=== PATIENT | female | born 1960 | race American Indian/Alaskan Native ===

== ENCOUNTER 2016-12-16 08:40 | Outpatient (CLI) | payer MEDICARE ==
--- NOTE | 2016-12-16 10:51 | Mammography Report ---
Bilateral mammogram: No previous studies available. CAD study utilized. Findings Predominance adipose tissue bilaterally. No mass or microcalcification. Benign axillary nodes. Impression: Benign findings. Annual followup recommended. BI-RADS CATEGORY: 2 = Benign ACR BI-RADS MAMMOGRAPHIC CODES: 0 = Needs additional imaging evaluation; 1 = Negative; 2 = Benign; 3 = Probably benign; 4 = Suspicious; 5 = Malignant; 6 = Known biopsy-proven malignancy COMMENT: 1. Dense breast tissue, i.e., adenosis, fibrocystic changes, etc., may obscure an underlying neoplasm. 2. Approximately 10% of cancers are not detected with mammography. 3. A negative mammography report should not delay biopsy if a clinically suspicious mass is present. COMMENT: Patient follow-up letters are generated in [employer]. There
== END 2016-12-16 08:41 | disposition home or self-care (01) ==
LOC: MAMMO 08:40
PROVIDERS: ATTEND Internal Medicine
DX: Z12.31 Encounter for screening mammogram for malignant neoplasm of breast (principal)
CPT/HCPCS: 77067; G0202

== ENCOUNTER 2018-09-30 09:59 | Outpatient (CLI) | payer MEDICARE ==
--- NOTE | 2018-09-30 11:17 | XRay Report ---
ROUTINE CHEST, TWO VIEWS: HISTORY: Chest pain, persistent cough. The trachea, heart, mediastinal contour, lung burnette and bony thorax are unremarkable. IMPRESSION: Unremarkable chest x-ray.
--- NOTE | 2018-09-30 11:18 | XRay Report ---
CERVICAL SPINE, 3 views: History: Neck pain. Findings: Normal bone mineralization. Normal height and alignment of the cervical vertebral bodies. Moderate to severe degenerative disc disease is identified at C2-3 and C3-4. Disc space narrowing and near bridging anterior osteophytes are identified at these levels. Mild anterior spurring is noted at the remaining levels. There is no evidence for fracture, subluxation or bone lesion. The dens is intact. Impression: Moderate cervical spondylosis as described.
--- NOTE | 2018-09-30 15:27 | Mammography Report ---
BILATERAL DIGITAL SCREENING MAMMOGRAM with CAD: 09/30/18 09:59:00 CLINICAL: Routine screening. COMPARISON:12/16/16 FINDINGS: The breasts are almost entirely fatty. No mass, architectural distortion or suspicious calcifications. IMPRESSION: No mammographic evidence of malignancy. BI-RADS CATEGORY: 1 - - Negative RECOMMENDATION: Routine mammographic screening in one year. COMMENT: Patient follow-up letters are generated by our [employer] application.
== END 2018-09-30 10:00 | disposition home or self-care (01) ==
LOC: MAMMO 09:59
PROVIDERS: ATTEND Internal Medicine
DX: Z12.31 Encounter for screening mammogram for malignant neoplasm of breast (principal); M47.812 Spondylosis without myelopathy or radiculopathy, cervical region; R07.9 Chest pain, unspecified
CPT/HCPCS: 71046; 72040; 77067

== ENCOUNTER 2018-12-22 17:47 | Emergency (ER) | payer MEDICARE ==
[2018-12-22] MEDS ORDERED: PEPCID IV ONE (18:12)
[2018-12-22] MEDS ORDERED: SOLU-Medrol IV ONE (18:12)
--- NOTE | 2018-12-22 18:12 | Event Note ---
ED Screening Note Date of service: 12/22/18 Time: 18:10 ED Screening Note: 58 y o female presents to ed cc of hives and blistering to upper and lower back This initial assessment/diagnostic orders/clinical plan/treatment(s) is/are subject to change based on patients health status, clinical progression and re- assessment by fellow clinical providers in the ED. Further treatment and workup at subsequent clinical providers discretion. Patient/guardian urged not to elope from the ED as their condition may be serious if not clinically assessed and managed. Initial orders include: IV meds pepcid and solumedrol iv fluids
[2018-12-22] MEDS ORDERED: NACL 0.9% 1000 ML 1,000 ML IV ONE (18:17)
[2018-12-22] MEDS ORDERED: THERMAZENE 50 GRAM TP ONE (18:21)
[2018-12-22 18:45] LABS: Basophils % (Auto) 0.3 % (0.0-1.8); Eosinophils # (Auto) 0.1 K/mm3 (0.0-0.4); Hematocrit 39.8 % (30.3-42.9); Hemoglobin 13.5 gm/dl (10.1-14.3); Lymphocytes # (Auto) 1.5 K/mm3 (1.2-5.4); Lymphocytes % (Auto) 14.3 % (13.4-35.0); Mean Corpuscular HGB Conc 34 % (30-34); Mean Corpuscular Volume 86 fl (79-97); Monocytes # (Auto) 0.6 K/mm3 (0.0-0.8); Monocytes % (Auto) 5.9 % (0.0-7.3); Platelet Count 282 K/mm3 (140-440); Red Blood Count 4.64 M/mm3 (3.65-5.03); Red Cell Distribution Width 13.6 % (13.2-15.2)
[2018-12-22 19:02] LABS: BUN/Creatinine Ratio 19; Blood Urea Nitrogen 13 mg/dL (7-17); Calcium 9.1 mg/dL (8.4-10.2); Hemolysis Index 7
[2018-12-22] MEDS ORDERED: ATARAX PO ONE (20:30)
[2018-12-22] MEDS ORDERED: DILAUDID IV ONE (21:05)
[2018-12-22] MEDS ORDERED: VISTARIL PO ONE (21:05)
[2018-12-22] MEDS ORDERED: ZOFRAN IV ONE (21:06)
[2018-12-22] MEDS ORDERED: VALTREX PO ONE (21:06)
--- NOTE | 2018-12-22 21:38 | Emergency Department Report ---
ED General Adult HPI - General Chief complaint: Skin Rash Stated complaint: BREAK OUT RASH Time Seen by Provider: 12/22/18 18:06 Source: patient Mode of arrival: Wheelchair Limitations: No Limitations - History of Present Illness Initial comments: Patient is a 58-year-old -[place] female with a history of chronic rheumatoid arthritis and hypertension who presents to the ED complaining of acute onset persistent severe painful, swollen, itchy erythematous maculopapular rash with blisters on her upper back diffusely for the last 2 days, and now is spreading to her neck and her lower back. Patient states that she has taken pain medications and a Benadryl at home with no relief. Patient denies dizziness, fever, chills, nausea, vomiting, numbness and tingling of upper and lower extremities bilaterally, headache, chest pain, shortness of breath, abdominal pain or insect bite. MD Complaint: Itchy erythematous painful blistered rash -: Sudden, days(s) (2) Location: back Radiation: back (diffuse), neck Severity scale (0 -10): 8 Quality: burning, aching, sharp Consistency: constant Improves with: none Worsens with: none Associated Symptoms: denies other symptoms. denies: confusion, chest pain, cough, diaphoresis, fever/chills, headaches, loss of appetite, malaise, nausea/vomiting, rash, seizure, shortness of breath, syncope, weakness, other Treatments Prior to Arrival: none - Related Data Previous Rx's Medication Instructions Recorded Last Taken Type Gabapentin [Neurontin] 300 mg PO Q8HR PRN #30 capsule 12/22/18 Unknown Rx Ibuprofen [Motrin] 800 mg PO Q8HR PRN #24 tablet 12/22/18 Unknown Rx Oxycodone HCl/Acetaminophen 1 each PO Q6HR PRN #12 tablet 12/22/18 Unknown Rx [Percocet 7.5/325 mg] Valacyclovir HCl [Valtrex] 1,000 mg PO Q8H #30 tablet 12/22/18 Unknown Rx hydrOXYzine PAMOATE [Vistaril] 50 mg PO Q6HR PRN #30 capsule 12/22/18 Unknown Rx Allergies Allergy/AdvReac Type Severity Reaction Status Date / Time No Known Allergies Allergy Unverified 12/16/16 08:41 ED Review of Systems ROS: Stated complaint: BREAK OUT RASH Other details as noted in HPI Constitutional: denies: chills, fever Eyes: denies: eye pain, eye discharge, vision change ENT: denies: ear pain, throat pain Respiratory: denies: cough, shortness of breath, wheezing Cardiovascular: denies: chest pain, palpitations Endocrine: no symptoms reported Gastrointestinal: denies: abdominal pain, nausea, diarrhea Genitourinary: denies: urgency, dysuria, discharge Musculoskeletal: back pain (due to erythematous maculopapular blistered rashes), arthralgia, myalgia. denies: joint swelling Skin: rash, lesions (Erythematous maculopapular blistered rashes on upper back and neck), change in color (erythematous), pruritus Neurological: denies: headache, weakness, paresthesias Psychiatric: denies: anxiety, depression Hematological/Lymphatic: denies: easy bleeding, easy bruising ED Past Medical Hx - Past Medical History Hx GERD: Yes Hx Arthritis: Yes (rheumatoid arthritis) Additional medical history: hernia - Social History Smoking Status: Former Smoker Substance Use Type: None - Medications Home Medications: Home Medications Medication Instructions Recorded Confirmed Last Taken Type Gabapentin [Neurontin] 300 mg PO Q8HR PRN #30 capsule 12/22/18 Unknown Rx Ibuprofen [Motrin] 800 mg PO Q8HR PRN #24 tablet 12/22/18 Unknown Rx Oxycodone HCl/Acetaminophen 1 each PO Q6HR PRN #12 tablet 12/22/18 Unknown Rx [Percocet 7.5/325 mg] Valacyclovir HCl [Valtrex] 1,000 mg PO Q8H #30 tablet 12/22/18 Unknown Rx hydrOXYzine PAMOATE [Vistaril] 50 mg PO Q6HR PRN #30 capsule 12/22/18 Unknown Rx ED Physical Exam - General Limitations: No Limitations General appearance: alert, in no apparent distress - Head Head exam: Present: atraumatic, normocephalic, normal inspection - Eye Eye exam: Present: normal appearance, PERRL, EOMI Pupils: Present: normal accommodation - ENT ENT exam: Present: normal exam, normal orophraynx, mucous membranes moist, TM's normal bilaterally, normal external ear exam - Neck Neck exam: Present: normal inspection - Respiratory Respiratory exam: Present: normal lung sounds bilaterally. Absent: respiratory distress, wheezes, rales, rhonchi, stridor, chest wall tenderness, accessory muscle use, prolonged expiratory - Cardiovascular Cardiovascular Exam: Present: normal rhythm, tachycardia, normal heart sounds. Absent: systolic murmur, diastolic murmur, rubs, gallop - GI/Abdominal GI/Abdominal exam: Present: soft, normal bowel sounds. Absent: distended, tenderness, rebound, hyperactive bowel sounds, hypoactive bowel sounds, organomegaly, mass - Rectal Rectal exam: Present: deferred - Extremities Exam Extremities exam: Present: normal inspection, full ROM, normal capillary refill - Back Exam Back exam: Present: normal inspection, tenderness (due to erythematous maculopapular blistered vesicular rash on upper posterior thoracic area), muscle spasm, rash noted (diffuse upper posterior thoracic area maculopapular erythematous blistered rash ) - Neurological Exam Neurological exam: Present: alert, oriented X3, CN II-XII intact, normal gait, reflexes normal - Psychiatric Psychiatric exam: Present: normal affect, normal mood - Skin Skin exam: Present: warm, dry, intact, normal color, rash (Erythematous ma culopapular blistered vesicular rash on posterior upper thoracic area), erythema, urticaria, vesicles ED Course Vital Signs 12/22/18 18:11 Temperature 99.3 F Pulse Rate 113 H Respiratory 22 Rate Blood Pressure 151/100 O2 Sat by Pulse 98 Oximetry - Reevaluation(s) Reevaluation #1: 12/22/18 21:41 Patient is alert and oriented 3 and is not in any distress but tachycardic and hypertensive in triage, and anxious. Lab tests results are reviewed and are unremarkable. Patient was treated for a suspected acute allergic reaction, and on reevaluation, physical exam shows corrected is take shingles outbreak following dermatomes of the upper posterior thoracic area. Patient was treated for pain in the ED and also treated for itching, and in given initial antiviral oral tablet Valtrex 1 g by mouth 1. Patient was discharged home on more Valtrex prescriptions, pain medications and antihistamines for itching. Patient is advised to follow-up with her primary care physician in 5-7 days for reevaluation or return to the ED immediately if symptoms get worse. ED Medical Decision Making - Lab Data Result diagrams: 12/22/18 18:27 12/22/18 18:27 - Medical Decision Making Patient is alert and oriented 3 and is not in any distress but tachycardic and hypertensive in triage, and anxious. Lab tests results are reviewed and are unremarkable. Patient was treated for a suspected acute allergic reaction, and on reevaluation, physical exam shows corrected is take shingles outbreak following dermatomes of the upper posterior thoracic area. Patient was treated for pain in the ED and also treated for itching, and in given initial antiviral oral tablet Valtrex 1 g by mouth 1. Patient was discharged home on more Valtrex prescriptions, pain medications and antihistamines for itching. Patient is advised to follow-up with her primary care physician in 5-7 days for reevaluation or return to the ED immediately if symptoms get worse. - Differential Diagnosis Herpes Zoster outbreak; Acute allergic reaction, itching with irritation Critical care attestation.: If time is entered above; I have spent that time in minutes in the direct care of this critically ill patient, excluding procedure time. ED Disposition Clinical Impression: Herpes zoster dermatitis, Itching with irritation Disposition: TO HOME OR SELFCARE Is pt being admited?: No Does the pt Need Aspirin: No Condition: Stable Instructions: Herpes Zoster (ED), Itchy Skin (ED) Additional Instructions: Take medications with food, drink plenty of fluids and follow-up with your [facility] care physician in 5-7 days for reevaluation. Return to the ED immediately if symptoms get worse. Prescriptions: Ibuprofen [Motrin] 800 mg PO Q8HR PRN #24 tablet PRN Reason: Pain , Severe (7-10) Gabapentin [Neurontin] 300 mg PO Q8HR PRN #30 capsule PRN Reason: Pain , Severe (7-10) Oxycodone HCl/Acetaminophen [Percocet 7.5/325 mg] 1 each PO Q6HR PRN #12 tablet PRN Reason: Pain Valacyclovir HCl [Valtrex] 1,000 mg PO Q8H #30 tablet hydrOXYzine PAMOATE [Vistaril] 50 mg PO Q6HR PRN #30 capsule PRN Reason: Itching Referrals: [facility] [Outside] - 3-5 Days Time of Disposition: 21:45 Print Language: AZERI
[2018-12-22 23:07] VITALS: BP 163/81
== END 2018-12-22 22:45 | disposition home or self-care (01) ==
LOC: ED 17:47
DX: B00.1 Herpesviral vesicular dermatitis (principal); K21.0 Gastro-esophageal reflux disease with esophagitis; M19.90 Unspecified osteoarthritis, unspecified site; Z87.891 Personal history of nicotine dependence; Z79.899 Other long term (current) drug therapy
CPT/HCPCS: 36415; 80048; 85025; 96374; 96375; 99283; J1170; J2405; J2930; J7030; 96361